=== PATIENT | male | born 1980 | race Caucasian/White ===

== ENCOUNTER 2024-03-10 16:39 | Emergency (ER) | payer OTHER, SELFPAY ==
[2024-03-10 16:49] VITALS: BP 128/76
[2024-03-10] MEDS: REGLAN 10 MG PO (18:21)
[2024-03-10] MEDS: MOTRIN 600 MG PO (18:21)
--- NOTE | 2024-03-10 18:38 | ED.GENMED ---
History of Present Illness
General
Chief Complaint: Head Injury
Source: patient and spouse
Exam Limitations: none
Time Seen by Provider: 03/10/24 17:30
Nursing documentation reviewed up to this point in time: agreed with
History of Present Illness
History of Present Illness:
43-year-old male presenting to the emergency department today with concerns of ongoing nausea headache sensitivity to light nausea running head on into his dog 2 days ago. Claims that the day after he had a baby shower was very active with
worsening symptoms. Ongoing headache today which prompted come to the ER. Denies any numbness weakness chest pain shortness of breath. He has been taking Percocet for pain which has been helping
Review of Systems
Review of Systems
Allergies reviewed?: Yes
All Other Systems: ROS reviewed and negative except as documented in HPI and ROS
Phy Exam
Physical Exam
Physical Exam:
GENERAL: Alert , in no apparent distress
EYE: pupils equal and reactive
NECK: Supple, no significant adenopathy.
ENT: o/p clr, mmm.
CARDIAC: Regular rate and rhythm .
LUNGS: Clear breath sounds bilaterally, no acute respiratory distress, no wheezes/rales/rhonchi
ABDOMEN: Soft, without focal tenderness, no r/g, no cvat
NEUROLOGICAL: Alert and oriented, no focal neuro deficits 5 out of 5 upper and lower extremity strength normal sensation with palpating bilaterally normal finger-nose snte-cm-ools no pronator drift
SKIN: Warm and dry, skin intact.
MUSCULOSKELETAL: No edema, well perfused.
PSYCH: Normal and appropriate interaction.
Course
Orders/Labs/Results
Orders:
Orders
03/10/24 16:40
CT Head W/o Iv Contrast Urgent
Comment:
Reason For Exam: head strike with LOC
03/10/24 18:11
Ibuprofen [Motrin] 600 mg PO NOW STA
Metoclopramide [Reglan] 10 mg PO NOW STA
Vital Signs
Initial and Last Documented VS:
Initial Vital Signs
Temp Pulse Resp BP Pulse Ox
98.6 F 87 18 128/76 97
03/10/24 16:49 03/10/24 16:49 03/10/24 16:49 03/10/24 16:49 03/10/24 16:49
Last Documented Vital Signs
Temp Pulse Resp BP Pulse Ox
98.6 F 87 18 128/76 97
03/10/24 16:49 03/10/24 16:49 03/10/24 16:49 03/10/24 16:49 03/10/24 16:49
MDM/Problems Addressed
MDM/Problems Addressed:
43-year-old male presenting to the emergency department with ongoing headache nausea sensitivity to light and noise over the past 2 days after running head-on into his dog. CT scan here without emergent findings no evidence of bleed or subdural.
Patient with likely concussion proper precautions were explained he was advised for medications for symptoms and otherwise close outpatient follow-up with his primary care doctor. Return precautions given.
*Critical Care Note
Total Time (30-74mins, 75-104mins- exclusive of procedures): Not Applicable
ED Attending Note
-
Portions of this chart may have been created with voice recognition software.� Occasional wrong word or��sound alike� substitutions may have occurred due to the inherent limitations of voice recognition software.
Discharge Plan
Departure
Patient Disposition: Home (Routine Discharge)
Date of Disposition: 03/10/24
Time of Disposition: 18:39
Patient with high blood pressure during this ER visit?: No
Condition: Good
Covid-19: Not Applicable
Discharge Problem:
Concussion
Instructions: Concussion, Adult (DC)
Prescriptions:
New
metoclopramide HCl [Reglan] 10 mg tablet
10 mg PO Q6H PRN (Reason: nausea and vomiting) Qty: 7 0RF
oxycodone-acetaminophen [Percocet] 5-325 mg tablet
1 tab PO Q8H PRN (Reason: Pain) Qty: 5 0RF
Activity Restrictions/Additional Instructions:
You came to the emergency department today with concerns of ongoing symptoms after head injury. This is likely a concussion. Please rest and take medications help with symptoms. Please follow closely with your primary care doctor within 1 week
for ongoing symptoms. Return to the emergency department for any worsening, new or concerning symptoms.
Interventions
Interventions:
*Risk Screen - Suicide Last Done: 03/10/24 16:49
*General Assessment Last Done: 03/10/24 16:49
*Neglect/Abuse Screening Last Done: 03/10/24 16:49
*ED COVID-19 Vaccine History Last Done: 03/10/24 16:49
ED- Neurological Assessment Last Done: 03/10/24 18:14
ED-Skin Assessment Last Done: 03/10/24 18:14
Discharge Date and Time
Print Language: EMIRATI
== END 2024-03-10 19:10 | disposition home or self-care (01) ==
LOC: EMR 16:39
PROVIDERS: EMERGENCY PHYSICIAN Emergency Medicine; FAMILY PHYSICIAN Internal Medicine
DX: S06.0XAA Concussion with loss of consciousness status unknown, initial encounter (principal); W22.8XXA Striking against or struck by other objects, initial encounter
CPT/HCPCS: 99284; 70450

== ENCOUNTER 2024-05-29 02:18 | Emergency (ER) | payer OTHER, SELFPAY ==
[2024-05-29] VITALS (7 sets, daily range): BP systolic 91–115; BP diastolic 63–90; BMI 24.8
[2024-05-29] MEDS: NSS 1000 IV (02:31)
[2024-05-29 02:54] LABS: % Basophils 0.2 % (0-2); % Eosinophils 1.6 % (0-6); % Immature Granulocytes 0.4 % (0-0.5); % Lymphocytes 27.2 % (20.5-51.1); % Monocytes 7.1 % (1.7-9.3); % Neutrophils 63.5 % (42.2-75.2); Absolute Eosinophils 0.2 10^3/uL (0-0.7); Absolute Lymphocytes 2.8 10^3/uL (1.2-3.4); Absolute Monocytes 0.7 10^3/uL (0.1-0.6); Absolute Neutrophils 6.6 10^3/uL (1.4-6.5); Hematocrit 41.8 % (39.0-52.0); Hemoglobin 14.2 g/dL (13.0-18.0); Mean Corpuscular Hgb 30.7 pg (27.0-31.0); Mean Corpuscular Volume 90.5 fL (80.0-94.0); Mean Platelet Volume 8.8 fL (7.4-10.4); Nucleated Red Blood Cells % 0 % (-); Platelet Count 285 10^3/uL (130-400); Red Blood Cell Count 4.62 10^6/uL (4.70-6.10); White Blood Cell Count 10.4 10^3/uL (4.8-10.8)
[2024-05-29 03:08] LABS: ALT (SGPT) 26 U/L (0-50); AST (SGOT) 23 U/L (17-59); Albumin 3.9 g/dl (3.5-5.0); Alkaline Phosphatase 45 U/L (38-126); Blood Urea Nitrogen 24 mg/dl (9-20); Calcium 8.6 mg/dl (8.4-10.2); Carbon Dioxide 27 mmol/L (22-30); Chloride 102 mmol/L (98-107); Estimated Creatinine Clearance > 125 ml/min; Glucose 141 mg/dl (70-99); Potassium 4.1 mmol/L (3.5-5.1); Sodium 136 mmol/L (135-145); Total Bilirubin 0.4 mg/dl (0.2-1.3); Total Protein 5.9 g/dl (6.3-8.2); eGFR > 60.00
--- NOTE | 2024-05-29 06:00 | ED.GENMED ---
History of Present Illness
General
Chief Complaint: Allergic Reaction
Source: patient
Exam Limitations: none
Time Seen by Provider: 05/29/24 02:22
Nursing documentation reviewed up to this point in time: agreed with
History of Present Illness
History of Present Illness:
Pleasant 44-year-old male presents to the emergency department via EMS complaining of allergic reaction. He had lip swelling and hives all over. Patient denies any new foods. His Suboxone recently changed to a different brand. 2 days after the
first dose he developed the symptoms. Patient called 911 and received epinephrine Decadron and fluids. He took 75 mg of Benadryl just prior to arrival. Patient reports no respiratory distress. He does have an allergy to cod and salmon but states
he gets intestinal upset. He has never had an anaphylactic reaction before
Review of Systems
Review of Systems
Allergies reviewed?: Yes
All Other Systems: ROS reviewed and negative except as documented in HPI and ROS
Constitutional: Reports no symptoms
EENT: Reports no symptoms
Respiratory: Reports trouble breathing
Cardiac: Reports no symptoms
ABD/GI: Reports no symptoms
: Reports no symptoms
Musculoskeletal: Reports no symptoms
Skin: Reports itching and rash
Neurological: Reports no symptoms
Endocrine: Reports no symptoms
Hematologic/Lymphatic: Reports no symptoms
Psychiatric: Reports anxiety
Phy Exam
General Physical Exam
General Presentation: well appearing and moderate distress
General age: appears stated age
General Skin: warm
General Habitus: normal
General Mental: alert
General Hydration: appears well hydrated
General Chronic Disability: mental retardation
ENT Exam
ENT Exam: EOMI, pharynx normal, neck supple and normocephalic
Eye Exam
Eye Exam: PERRL, cornea clear and conjunctiva normal
Cardiovascular Exam
Cardiovascular Exam: regular rate/rhythm, no edema, no murmur and normal peripheral pulses
Pulmonary Exam
Pulmonary Exam: lungs clear, no respiratory distress, no rales, no crackles, no rhonchi, no stridor, no wheezing and no cough
Gastrointestinal Exam
Gastrointestinal Exam: normal bowel sounds, non tender, soft, no organomegaly, no pulsatile mass and non distended
Neurological Exam
Neurological Exam: alert, oriented x3, no motor deficits and speech normal
Musculoskeletal Exam
Musculoskeletal Exam: full ROM and no edema
Skin Exam
Skin Exam: other (Urticaria)
Psychiatric Exam
Psychiatric Exam: normal mood/affect
Course
Orders/Labs/Results
Orders:
Orders
05/29/24 02:21
Electrocardiogram (*1) Urgent
Reason for Study: Chest Pain
EKG- Treatment ONCE
05/29/24 02:30
0.9% Sodium Chloride 1000 ml [Nss] 1,000 ml IV BOLUS
05/29/24 02:48
Complete Blood Count/With Diff Urgent
Comprehensive Metabolic Panel Urgent
Abnormal Lab Results
05/29/24
02:48
RBC 4.62 L 10^6/uL
(4.70-6.10)
Absolute Neuts (auto) 6.6 H 10^3/uL
(1.4-6.5)
Absolute Monos (auto) 0.7 H 10^3/uL
(0.1-0.6)
BUN 24 H mg/dl
(9-20)
Glucose 141 H mg/dl
(70-99)
Total Protein 5.9 L g/dl
(6.3-8.2)
05/29/24 02:48
05/29/24 02:48
Vital Signs
Initial and Last Documented VS:
Initial Vital Signs
Temp Pulse Resp BP Pulse Ox
97.9 F 72 14 115/90 99
05/29/24 02:22 05/29/24 02:22 05/29/24 02:22 05/29/24 02:22 05/29/24 02:22
Last Documented Vital Signs
Temp Pulse Resp BP Pulse Ox
97.9 F 66 11 105/72 100
05/29/24 02:22 05/29/24 06:00 05/29/24 05:45 05/29/24 06:00 05/29/24 06:00
*Critical Care Note
Total Time (30-74mins, 75-104mins- exclusive of procedures): Not Applicable
Update Note
Update Note:
05/29/2024 0604 AM: Patient resting comfortably, no acute distress. Urticaria has resolved. Patient has no complaints at this time. Patient to be discharged
ED Attending Note
-
Portions of this chart may have been created with voice recognition software.� Occasional wrong word or��sound alike� substitutions may have occurred due to the inherent limitations of voice recognition software.
Discharge Plan
Departure
Patient Disposition: Home (Routine Discharge)
Date of Disposition: 05/29/24
Time of Disposition: 06:05
Patient with high blood pressure during this ER visit?: Yes
Discharge Problem:
Anaphylaxis
Instructions: Anaphylaxis - Discharge instructions, Allergic reaction - ED discharge instructions
Prescriptions:
New
prednisone 50 mg Tablet
50 mg PO DAILY Qty: 5 0RF
epinephrine [EpiPen] 0.3 mg/0.3 mL Auto-Injector
0.3 mg IM .STAT PRN (Reason: anaphylaxis) Qty: 1 0RF
diphenhydramine HCl [Benadryl] 25 mg capsule
25 mg PO TID PRN (Reason: allergy symptoms) Qty: 14 0RF
diphenhydramine HCl [Benadryl] 25 mg capsule
25 mg PO TID PRN (Reason: allergy symptoms) Qty: 14 0RF
No Action
metoclopramide HCl [Reglan] 10 mg tablet
10 mg PO Q6H PRN (Reason: nausea and vomiting) Qty: 7 0RF
oxycodone-acetaminophen [Percocet] 5-325 mg tablet
1 tab PO Q8H PRN (Reason: Pain) Qty: 5 0RF
Referrals:
Corry Alfaro MD [Consulting Staff] - Next open appointment
UNKNOWN - PT DOES,NOT KNOW [Family Provider] -
Activity Restrictions/Additional Instructions:
Though not confirmed, it is possible that your new Suboxone prescription may be causing this allergy. Please discuss this with the prescribing doctor
It was a pleasure meeting you and taking part in your care. We hope for your continued healing and wellness.
Please read discharge instructions in their entirety. However, they are for general education and may not describe your exact diagnosis at discharge. Information on your ER visit and medical conditions were discussed with you along with appropriate
follow up information...
If indicated, please take your medications as instructed and indicated on discharge paperwork.
Please schedule a follow up appointment as directed. Call to schedule an appointment
Please return to the emergency department with ANY change in, persisting, or worsening of symptoms. If any of your symptoms do not improve, or persist, or become more severe within 6-12 hours, please return to the emergency department for further
care.
Please return to the emergency department if you develop a headache, neck pain/stiffness, fever greater than 100.4F, chest pain, shortness of breath, persistent nausea, vomiting, slurred speech, difficulty walking, numbness/tingling, weakness, signs
of infection or any other symptoms that are worrisome to you.
If you have any questions or concerns please do not hesitate to call the Hospital at or E-mail me directly at [email or web address]
Interventions
Interventions:
*Risk Screen - Suicide Last Done: 05/29/24 02:22
*General Assessment Last Done: 05/29/24 02:22
*Neglect/Abuse Screening Last Done: 05/29/24 02:22
*ED COVID-19 Vaccine History Last Done: 05/29/24 02:22
*Nursing Disposition Last Done: 05/29/24 06:42
ED- Cardiac Assessment Last Done: 05/29/24 02:27
ED- Pulmonary Assessment Last Done: 05/29/24 02:27
ED-Skin Assessment Last Done: 05/29/24 02:27
Discharge Date and Time
Discharge Date/Time: 05/29/24 06:44
Print Language: PASHTO
== END 2024-05-29 06:44 | disposition home or self-care (01) ==
LOC: EMR 02:18
PROVIDERS: EMERGENCY PHYSICIAN Student in an Organized Health Care Education/Training Program
DX: T78.2XXA Anaphylactic shock, unspecified, initial encounter (principal); X58.XXXA Exposure to other specified factors, initial encounter
CPT/HCPCS: 99283; 96360; 80053; 85025; 93005